=== PATIENT | female | born 1960 | race Caucasian/White ===

== ENCOUNTER → 2019-07-16 | Outpatient (CLI) | payer SELFPAY | END | disposition home or self-care (01) | LOC: LAB SHORT 15:45 → LAB 15:45 | DX: N39.0 Urinary tract infection, site not specified (principal) | CPT/HCPCS: 87077; 87086; 87186 ==

== ENCOUNTER → 2019-09-11 | Outpatient (CLI) | payer BC | END | disposition home or self-care (01) | LOC: LAB 06:00 → LAB SHORT 06:00 | DX: N39.0 Urinary tract infection, site not specified (principal) | CPT/HCPCS: 87077; 87086; 87186 ==

== ENCOUNTER → 2019-10-01 | Outpatient (CLI) | payer BC ==
[2019-10-01 15:01] LABS: Bilirubin, Urine Neg (Neg); Blood, Urine 3+ (Neg); Glucose Qualitative, Urine Neg (Neg); Ketones, Urine Neg (Neg); Leukocyte Esterase, Urine 2+ (Neg); Nitrite, Urine Neg (Neg); Protein, Urine Neg (Neg); Specific Gravity, Urine 1.005 (1.003-1.022); Urobilinogen, Urine NORM (Normal)
[2019-10-01 15:07] LABS: Appearance, Urine Hazy (Clear); Color, Urine Pale Yellow (P-Yellow)
[2019-10-01 15:08] LABS: Bacteria Few /hpf; Squamous Epithelial Cells Few /hpf (Few); White Blood Cells, Urine TNTC /hpf (0-5)
== END | disposition home or self-care (01) ==
LOC: LAB SHORT 12:05 → LAB 12:05 → LAB FUT 10-01 13:50
PROVIDERS: Physician Assistant
DX: N30.00 Acute cystitis without hematuria (principal)
CPT/HCPCS: 81001; 87086

== ENCOUNTER → 2019-11-07 | Outpatient (CLI) | payer BC | END | disposition home or self-care (01) | LOC: LAB 08:56 → LAB SHORT 08:56 | DX: N39.0 Urinary tract infection, site not specified (principal); R30.0 Dysuria; R39.15 Urgency of urination | CPT/HCPCS: 87086 ==

== ENCOUNTER → 2020-02-08 | Outpatient (CLI) | payer BC ==
[2020-02-08 12:20] LABS: Source, Urine Clean Catch
[2020-02-08 14:01] LABS: Bilirubin, Urine Neg (Neg); Blood, Urine 2+ (Neg); Glucose Qualitative, Urine Neg (Neg); Ketones, Urine Neg (Neg); Leukocyte Esterase, Urine 2+ (Neg); Nitrite, Urine Neg (Neg); Protein, Urine Neg (Neg); Specific Gravity, Urine 1.005 (1.003-1.022); Urobilinogen, Urine NORM (Normal)
[2020-02-08 14:08] LABS: Appearance, Urine Clear (Clear); Color, Urine Yellow (P-Yellow)
[2020-02-08 14:09] LABS: White Blood Cells, Urine 50-100 /hpf (0-5)
[2020-02-08 14:10] LABS: Bacteria Few /hpf; Squamous Epithelial Cells Few /hpf (Few)
== END | disposition home or self-care (01) ==
LOC: LAB SHORT 12:18 → OLS 12:18 → LAB FUT 02-07 11:50
PROVIDERS: Urology
DX: N39.0 Urinary tract infection, site not specified (principal)
CPT/HCPCS: 81001; 87086

== ENCOUNTER → 2020-11-02 | Outpatient (CLI) | payer BC | END | disposition home or self-care (01) | LOC: LAB SHORT 06:50 → LAB 06:50 | DX: Z20.7 Contact with and (suspected) exposure to pediculosis, acariasis and other infestations (principal) | CPT/HCPCS: 87177; 87209 ==

== ENCOUNTER → 2020-11-03 | Outpatient (CLI) | payer BC | END | disposition home or self-care (01) | LOC: LAB SHORT 07:00 → LAB 07:00 | DX: Z20.7 Contact with and (suspected) exposure to pediculosis, acariasis and other infestations (principal) | CPT/HCPCS: 87177; 87209 ==

== ENCOUNTER → 2020-11-04 | Outpatient (CLI) | payer BC | END | disposition home or self-care (01) | LOC: LAB SHORT 07:06 → LAB 07:06 | DX: Z20.7 Contact with and (suspected) exposure to pediculosis, acariasis and other infestations (principal) | CPT/HCPCS: 87177; 87209 ==

== ENCOUNTER → 2022-06-09 | Outpatient (CLI) | payer BC ==
[2022-06-09 06:29] LABS: CHOL/HDL RATIO 3.5; Cholesterol 245 mg/dL (50-200); HDL Cholesterol 71 mg/dL (>39); LDL/HDL RATIO 2.2; Low Density Lipoprotein Chol 155 mg/dL (0-110); Triglycerides 97 mg/dL (30-160); Very Low Density Lipoprot Chol 19 mg/dL (6-32)
== END | disposition home or self-care (01) ==
LOC: LAB SHORT 06:00 → LAB 06:00
PROVIDERS: Naturopath
DX: E78.5 Hyperlipidemia, unspecified (principal)
CPT/HCPCS: 80061

== ENCOUNTER → 2022-10-13 | Outpatient (CLI) | payer BC ==
[2022-10-13 09:06] LABS: Cholesterol 228 mg/dL (50-200); HDL Cholesterol 77 mg/dL (>39); LDL/HDL RATIO 1.7; Low Density Lipoprotein Chol 129 mg/dL (0-110); Triglycerides 111 mg/dL (30-160); Very Low Density Lipoprot Chol 22 mg/dL (6-32)
== END | disposition home or self-care (01) ==
LOC: LAB 07:30 → LAB SHORT 07:30
PROVIDERS: Naturopath
DX: E78.5 Hyperlipidemia, unspecified (principal)
CPT/HCPCS: 80061

== ENCOUNTER → 2023-03-07 | Outpatient (CLI) | payer BC ==
[~2023-03-07] MED LIST: BETAMETHASONE; ESTRADIOL
== END | disposition home or self-care (01) ==
LOC: LAB 11:44 → LAB SHORT 11:44
DX: M17.12 Unilateral primary osteoarthritis, left knee (principal)
CPT/HCPCS: 86900; 86901

== ENCOUNTER 2023-03-27 11:10 | Day surgery (SDC) | payer BC ==
[~2023-03-27] VITALS: Ht 152.4 cm; Wt 75.2 kg
[2023-03-27] VITALS (25 sets, daily range): BP systolic 99–154; BP diastolic 62–89
[~2023-03-27 11:10] MED LIST changes: +Arnica120 ML SL; +Arnica120 ML TOP; -BETAMETHASONE; +BETAMETHASONE TOP; -ESTRADIOL; +ESTRADIOL VAG; +HYDHCL25 PO
--- NOTE | 2023-03-27 14:27 | NUR ---
Ambulatory in Day Surgery. Pre-Op teaching done. Pt verbalizes understanding. Patient confirms NPO status and agrees with scheduled surgery. History, Chart, Medications and Allergies reviewed before start of procedure. Lungs clear T/O to Auscultation. Patient reports completing Chlorhexadine shower X5 prior to admission to hospital. Surgical site prepped with 2% Chlorhexidine cloth wipe. Patient States Post-Procedure ride home has been arranged.
--- NOTE | 2023-03-27 19:10 | NUR ---
pt transferred to room via own bed, awake, nauseous/vomiting, medicated per mar, pt/family oriented to room, post op vs commenced and stable. operative knee cryotherapy in place, aquacell dressing c/d/i, capillary refill <3 seconds in operative limb toes.
--- NOTE | 2023-03-28 04:09 | NUR ---
SHIFT SUMMARY NO ACUTE EVENTS THIS SHIFT, PATIENT ABLE TO GET UP TO BATHROOM AND BSC, 1 ASSIST FWW, GB. DENIES N/T IN LOLA LE. BULKY DRESSING WITH MATT WRAP TO LLE, C/D/I. PATIENT ONLY ABLE TO VOID SMALL AMOUNTS WITH PVR HIGHER THAN 350, STRAIGHT CATH X1. IVF INFUSING. PATIENT HAVING HAD SEVERAL BOUGHTS OF NAUSEA THIS SHIFT AND MEDICATED PER EMAR. MEDICATED FOR PAIN PER EMAR, PATIENT DID HAVE EMESIS AFTER PAIN MEDICATION. TOLERATED TORADOL. POLAR PACK IN PLACE. SCD'S, DYLON HOSE ON. VSS, CALL LIGHT IS IN REACH AND MAKES NEEDS KNOWN. WILL REPORT TO DAY RN.
[2023-03-28 04:46] VITALS: BP 135/81
[2023-03-28 05:23] LABS: BASOPHILS ABSOLUTE AUTO 0.04 K/mm3 (0.00-0.23); BASOPHILS PERCENT AUTO 0 % (0-2); EOSINOPHILS ABSOLUTE AUTO 0.01 K/mm3 (0.00-0.68); EOSINOPHILS PERCENT AUTO 0 % (0-6); Hematocrit 38.3 % (33.0-51.0); Hemoglobin 12.6 g/dL (11.5-16.0); IMMATURE GRAN ABSOLUTE AUTO 0.03 K/mm3 (0.00-0.10); IMMATURE GRAN PERCENT AUTO 0 % (0-1); LYMPHOCYTES ABSOLUTE AUTO 1.31 K/mm3 (0.84-5.20); LYMPHOCYTES PERCENT AUTO 10 % (21-46); MONOCYTES ABSOLUTE AUTO 0.75 K/mm3 (0.16-1.47); MONOCYTES PERCENT AUTO 6 % (4-13); Mean Corpuscular HGB 30.5 pg (26.0-34.0); Mean Corpuscular HGB Conc 32.9 g/dL (31.5-36.5); Mean Corpuscular Volume 93 fL (80-100); Mean Platelet Volume 10.7 fL (9.1-12.4); NEUTROPHILS ABSOLUTE AUTO 10.88 K/mm3 (1.96-9.15); NEUTROPHILS PERCENT AUTO 84 % (41-73); Platelet Count 192 K/mm3 (150-400); RDW Coefficient Variation 13.2 % (11.7-14.2); RDW Standard Deviation 45.2 fL (35.1-46.3); Red Blood Cell Count 4.13 M/mm3 (3.80-5.20); White Blood Cell Count 13.02 K/mm3 (4.00-11.30)
[2023-03-28 05:44] LABS: Bun/Creatinine Ratio 17.6 (12.0-20.0); Calcium, Blood 8.2 mg/dL (8.5-10.1); Creatinine, Blood 0.51 mg/dL (0.40-1.00); Magnesium, Blood 1.7 mg/dL (1.6-2.4); Potassium, Blood 4.2 mmol/L (3.5-5.5)
[2023-03-28 07:49] VITALS: BP 138/69
[2023-03-28] MEDS ORDERED: PROM25 PO (08:53)
[2023-03-28] MEDS ORDERED: SULTRIDS PO (08:54)
[2023-03-28] MEDS ORDERED: XARELTO20 MG PO (08:54)
[2023-03-28] MEDS ORDERED: OXYC5 PO (08:57)
--- NOTE | 2023-03-28 11:22 | NUR ---
SHIFT SUMMARY POD1 L TKA, A/OX4, VSS, TOLERATING PO, NAUSEA IMPROVED OVER NIGHT, PAIN WELL MANAGED, PT REPORTS PICKING UP POST OP MEDICATIONS BEFORE COMING IN FOR SURGERY, DRESSING CHANGED THIS AM BY SURGEON WITH INCSION CARE INSTRUCTIONS WELL. DISUSSED DISCHARGE INFORMATION WITH HER INCLUDING HOME CARE, MEDICATIONS, AND FOLLOW UP APPPOINTMENTS. NO QUESTIONS AT THIS TIME. IV REMOVED PRIOR TO DC. ESCORTED OUT VIA WC TO PRIVATE AUTO TO GO HOME.
--- NOTE | 2023-03-29 08:21 | NUR ---
prescription for nausea medications called into [facility]
== END 2023-03-28 10:56 | disposition home or self-care (01) ==
LOC: ORSCMMR 11:10 → ORD 14:00 → SURS 18:57 → ORSCMMR 03-28 10:56
PROVIDERS: Orthopaedic Surgery
PROC: 0SRD0J9 Replacement of Left Knee Joint with Synthetic Substitute, Cemented, Open Approach (ICD-10-PCS; principal; 2023-03-27 14:00)
DX: M17.0 Bilateral primary osteoarthritis of knee (principal); K21.9 Gastro-esophageal reflux disease without esophagitis; I48.91 Unspecified atrial fibrillation; M79.7 Fibromyalgia; F41.9 Anxiety disorder, unspecified; Z79.899 Other long term (current) drug therapy
CPT/HCPCS: 36415; 73560-LT; 80048; 83735; 85025; 97110; 97116; 97161; A9270; C1713; C1776; J0171; J0690; J0735; J0780; J1885; J2250; J2405; J2704; J2765; J2795; J3010; J3370; J7120

== ENCOUNTER → 2024-03-24 | Outpatient (CLI) | payer MEDICARE ==
[~2024-03-24] MED LIST changes: +OXYC5 PO; +PROM25 PO; +SULTRIDS PO; +XARELTO20 MG PO
== END ==
LOC: LAB 18:47 → LAB SHORT 18:47
DX: N39.0 Urinary tract infection, site not specified (principal)
CPT/HCPCS: 87077; 87086; 87186

== ENCOUNTER → 2025-06-22 | Outpatient (CLI) | payer MEDICARE | END | disposition home or self-care (01) | LOC: LAB 16:11 → LAB SHORT 16:11 | DX: N39.0 Urinary tract infection, site not specified (principal) | CPT/HCPCS: 87077; 87086; 87106; 87186 ==